=== PATIENT | female | born 1990 | race African-American/Black ===

== ENCOUNTER 2023-08-09 18:15 | Emergency (ER) | payer OTHER, SELFPAY ==
[2023-08-09] MEDS ORDERED: Ketorolac Tromethamine 30 MG (1 mL) VIAL ONE (18:44)
[2023-08-09] MEDS ORDERED: Morphine 4 MG/ML VIAL ONE (19:16)
[2023-08-09] MEDS ORDERED: Bacitracin 1 PK ONE (22:07)
== END 2023-08-09 22:50 | disposition home or self-care (01) ==
LOC: CSHERS 18:15
DX: S52.121A Displaced fracture of head of right radius, initial encounter for closed fracture (principal); W05.2XXA Fall from non-moving motorized mobility scooter, initial encounter
CPT/HCPCS: 71045; 96372; J1885; J2270